=== PATIENT | male | born 1960 | race Two or more races ===

== ENCOUNTER 2016-10-16 00:41 | Emergency (ER) | payer OTHER ==
[~2016-10-16] VITALS: Ht 175.3 cm; Wt 90.7 kg
[~2016-10-16 00:41] MED LIST: ZITHROMAX500 MG ORAL
[2016-10-16] MEDS ORDERED: Albuterol ud Inhalation HHN ONE (02:00)
[2016-10-16] MEDS ORDERED: PredniSONE 20mg tab ORAL ONE (02:00)
[2016-10-16] MEDS ORDERED: Ipratropium 0.02% Inh Soln 2.5ml UD HHN ONE (02:00)
[2016-10-16] MEDS ORDERED: PROMETHAZINE-C118 M1 ORAL (02:43)
[2016-10-16] MEDS ORDERED: PREDNISONE20 MG ORAL (02:43)
[2016-10-16 02:45] VITALS: BP 112/66
[2016-10-16 02:50] VITALS: BP 107/67
--- NOTE | 2016-10-17 07:50 | Emergency Room Report ---
History of Present Illness General Chief Complaint: Upper Respiratory Illness Source: Patient Present Illness HPI 56-year-old male presents ED for evaluation. States that for the last 4-5 days he's been having cough and congestive symptoms. Cough is dry. Nonproductive. Patient is runny nose. Denies fevers or chills. Denies sore throat earache. notes history of asthma states his inhaler is not helping. Denies sick contacts or recent travel. No other aggravating or relieving factors. Denies any other associated symptom Allergies: Coded Allergies: PENICILLINS (Unverified Allergy, Severe, 01/19/15) SULFA (SULFONAMIDE ANTIBIOTICS) (Unverified Allergy, Severe, 01/19/15) Patient History Past Medical History: HTN, asthma Past Surgical History: none Pertinent Family History: none Social History: Denies: alcohol use, drug use, smoking Immunizations: UTD Reviewed Nursing Documentation: PMH: Agreed, PSxH: Agreed Nursing Documentation-PMH Hx Hypertension: Yes Hx Asthma: Yes Review of Systems All Other Systems: negative except mentioned in HPI Physical Exam Vital Signs Date Time Temp Pulse Resp B/P Pulse Ox O2 Delivery O2 Flow Rate FiO2 10/16/16 00:59 98.2 93 16 107/67 94 Room Air Sp02 EP Interpretation: reviewed, normal General Appearance: no apparent distress, alert, GCS 15, non-toxic Head: normocephalic, atraumatic Eyes: bilateral eye PERRL, bilateral eye normal inspection ENT: hearing grossly normal, normal pharynx, no angioedema, normal voice Neck: full range of motion, supple/symm/no masses Respiratory: chest non-tender, speaking full sentences, wheezing Cardiovascular #1: regular rate, rhythm, no edema Cardiovascular #2: 2+ carotid (R), 2+ carotid (L), 2+ radial (R), 2+ radial (L) , 2+ dorsalis pedis (R), 2+ dorsalis pedis (L) Gastrointestinal: normal bowel sounds, non tender, soft, non-distended, no guarding, no rebound Rectal: deferred Genitourinary: normal inspection, no CVA tenderness Musculoskeletal: back normal, gait/station normal, normal range of motion, non- tender Neurologic: alert, oriented x3, responsive, motor strength/tone normal, sensory intact, speech normal Psychiatric: judgement/insight normal, memory normal, mood/affect normal, no suicidal/homicidal ideation Reflexes: 3+ bicep (R), 3+ bicep (L), 3+ tricep (R), 3+ tricep (L), 3+ knee (R) , 3+ knee (L) Skin: normal color, no rash, warm/dry, well hydrated Lymphatic: no adenopathy Medical Decision Making Diagnostic Impression: Primary Impression: Bronchitis ER Course Hospital Course 56-year-old male presents to ED complaining of cough, wheezing Differential diagnoses include: URI, bronchitis, asthma/COPD, pneumonia Clinical course Patient placed on stretcher. After initial history and physical I ordered prednisone and nebulizer treatment. Upon reassessment patient states cough and symptoms have improved. Findings consistent with bronchitis. Diagnosis - bronchitis Stable and discharged home with prescriptions for Rx prednisone, cough syrup. Instructed to followup with PMD. Return to ED if symptoms recur or worsen Last Vital Signs Date Time Temp Pulse Resp B/P Pulse Ox O2 Delivery O2 Flow Rate FiO2 10/16/16 03:13 82 18 100 Room Air 10/16/16 02:50 98.2 107/67 Status: improved Disposition: HOME, SELF-CARE Condition: Stable Scripts Codeine/Promethazine Hcl* (PROMETHAZINE-CODEINE SYRUP*) 118 Ml Syrup 5 ML ORAL Q6H Y for For Cough for 5 Days, #118 ML 0 Refills Prov: JANKI GRAVES M.D. 10/16/16 Prednisone* (PREDNISONE*) 20 Mg Tablet 40 MG ORAL DAILY for 5 Days, TAB Prov: JANKI GRAVES M.D. 10/16/16 Referrals: [facility] (PCP) Patient Instructions: Acute Bronchitis, [id number] JANKI GRAVES M.D. October 17, 2016 07:50
== END 2016-10-16 02:50 | disposition home or self-care (01) ==
LOC: EMR 01:15
DX: J45.909 Unspecified asthma, uncomplicated (principal); I10 Essential (primary) hypertension; Z88.0 Allergy status to penicillin; Z88.2 Allergy status to sulfonamides
CPT/HCPCS: 94640; 94664; 99284

== ENCOUNTER 2017-11-09 20:46 | Emergency (ER) | payer OTHER ==
[~2017-11-09] VITALS: Ht 175.3 cm; Wt 90.7 kg
[~2017-11-09 20:46] MED LIST changes: +PREDNISONE20 MG ORAL; +PROMETHAZINE-C118 M1 ORAL
[2017-11-09 21:25] VITALS: BP 98/52
[2017-11-09 21:37] VITALS: BP 98/52
[2017-11-09] MEDS ORDERED: PROMETHAZINE-C118 M1 ORAL (21:37)
[2017-11-09] MEDS ORDERED: PREDNISONE20 MG ORAL (21:37)
[2017-11-09] MEDS ORDERED: ZITHROMAX250 MG ORAL (21:37)
--- NOTE | 2017-11-09 22:54 | Emergency Room Report ---
History of Present Illness General Chief Complaint: Upper Respiratory Illness Source: Patient Present Illness HPI 57-year-old male presents ED for evaluation. States he's had a runny nose and cough for the last 3 weeks. Cough is productive with yellowish phlegm. States she has history of COPD. States he does smoke. Denies fevers or chills. Denies chest pain. Denies sick contacts or recent travel. No other aggravating relieving factors. Denies any other associated symptoms Allergies: Coded Allergies: PENICILLINS (Unverified Allergy, Severe, 01/19/15) SULFA (SULFONAMIDE ANTIBIOTICS) (Unverified Allergy, Severe, 01/19/15) Patient History Past Medical History: HTN, asthma, COPD Past Surgical History: none Pertinent Family History: none Social History: Denies: smoking, alcohol use, drug use Immunizations: UTD Reviewed Nursing Documentation: PMH: Agreed; PSxH: Agreed Nursing Documentation-PMH Hx Hypertension: Yes Hx Asthma: Yes Hx COPD: Yes Hx Dialysis: No - 3rd stage kidney disease Review of Systems All Other Systems: negative except mentioned in HPI Physical Exam Vital Signs Date Time Temp Pulse Resp B/P (MAP) Pulse Ox O2 Delivery O2 Flow Rate FiO2 11/09/17 21:18 98.8 104 18 98/52 96 Room Air 98.8 Sp02 EP Interpretation: reviewed, normal General Appearance: no apparent distress, alert, GCS 15, non-toxic Head: normocephalic, atraumatic Eyes: bilateral eye normal inspection, bilateral eye PERRL ENT: hearing grossly normal, normal pharynx, no angioedema, normal voice Neck: full range of motion, supple/symm/no masses Respiratory: chest non-tender, lungs clear, normal breath sounds, speaking full sentences Cardiovascular #1: regular rate, rhythm, no edema Cardiovascular #2: 2+ carotid (R), 2+ carotid (L), 2+ radial (R), 2+ radial (L) , 2+ dorsalis pedis (R), 2+ dorsalis pedis (L) Gastrointestinal: normal bowel sounds, non tender, soft, non-distended, no guarding, no rebound Rectal: deferred Genitourinary: normal inspection, no CVA tenderness Musculoskeletal: back normal, gait/station normal, normal range of motion, non- tender Neurologic: alert, oriented x3, responsive, motor strength/tone normal, sensory intact, speech normal Psychiatric: judgement/insight normal, memory normal, mood/affect normal, no suicidal/homicidal ideation Reflexes: 3+ bicep (R), 3+ bicep (L), 3+ tricep (R), 3+ tricep (L), 3+ knee (R) , 3+ knee (L) Skin: normal color, no rash, warm/dry, well hydrated Lymphatic: no adenopathy Medical Decision Making Diagnostic Impression: Primary Impression: Bronchitis ER Course Hospital Course 57-year-old male presents ED complaining of cough x 3 weeks Differential diagnoses include: URI, pharyngitis, otitis media, asthma Clinical course Patient placed on stretcher. After initial history, physical exam reveals a male in no acute distress. Bilateral TM unremarkable. No pharyngeal erythema. No tonsillar exudates. No lymphadenopathy. lungs clear. abdomen soft. Given prolonged course and history of COPD we will prescribe antibiotics and steroids and cough medication. Patient will continue his Spiriva after prednisone. Use his rescue inhaler when necessary Diagnosis - bronchitis Stable and discharged home with Rx Zpack, promethazine/codeine, prednisone. Instructed to followup with PMD. Return to ED if symptoms recur or worsen Last Vital Signs Date Time Temp Pulse Resp B/P (MAP) Pulse Ox O2 Delivery O2 Flow Rate FiO2 11/09/17 21:18 98.8 104 18 98/52 96 Room Air 98.8 Status: improved Disposition: HOME, SELF-CARE Condition: Stable Scripts Codeine/Promethazine Hcl* (PROMETHAZINE-CODEINE SYRUP*) 118 Ml Syrup 5 ML ORAL Q6H PRN for For Cough, #118 ML 0 Refills Prov: Jacky Brasher MD 11/09/17 Prednisone* (PREDNISONE*) 20 Mg Tablet 40 MG ORAL DAILY, #10 TAB Prov: Jacky Brasher MD 11/09/17 Azithromycin* (ZITHROMAX*) 250 Mg Tablet 250 MG ORAL DAILY, #6 TAB 0 Refills Take two tables once daily for 1 day, then one tablet once daily for 4 days. Prov: Jacky Brasher MD 11/09/17 Referrals: [facility] (PCP) Patient Instructions: Acute Bronchitis, [id number] Jacky Brasher MD Nov 09, 2017 22:54
== END 2017-11-09 22:00 | disposition home or self-care (01) ==
LOC: EMR 22:00
DX: J44.9 Chronic obstructive pulmonary disease, unspecified (principal); I12.9 Hypertensive chronic kidney disease with stage 1 through stage 4 chronic kidney disease, or unspecified chronic kidney disease; N18.3 Chronic kidney disease, stage 3 (moderate); Z88.0 Allergy status to penicillin; Z88.2 Allergy status to sulfonamides
CPT/HCPCS: 99284